=== PATIENT | male | born 1995 | race Caucasian/White ===

== ENCOUNTER 2017-09-17 18:15 | Emergency (ER) | payer OTHER ==
[2017-09-17] MEDS ORDERED: PHENYLEPHRINE 0.5% NOSE 15ML NAS ONE (20:37)
[2017-09-17] MEDS ORDERED: SILVER NITRATE 1 APPL TOP ONE (20:37)
--- NOTE | 2017-09-17 20:50 | ER ---
Nurse's Notes [facility] Name: Inocencio Khan Age: 21 yrs Sex: Male : 1995 Arrival Date: 09/17/2017 Time: 18:20 Bed 15 Private MD: Diagnosis: Epistaxis Presentation: 09/17 18:27 Presenting complaint: Patient states: i have 2 nose bleeds in the past 10 days; its hj stops in 45 minutes;. Transition of care: patient was not received from another setting of care. Onset of symptoms was September 17, 2017. Initial Sepsis Screen: Does the patient meet any 2 criteria? No. Patient's initial sepsis screen is negative. Does the patient have a suspected source of infection? No. Patient's initial sepsis screen is negative. Care prior to arrival: None. 18:27 Method Of Arrival: Ambulatory hj 18:27 Acuity: EDWIGE 4 hj Triage Assessment: 18:29 General: Appears in no apparent distress. uncomfortable, Behavior is calm, cooperative, hj appropriate for age. Pain: Denies pain. Historical: - Allergies: 18:29 Tamiflu; hj - Home Meds: 18:29 None [Active]; hj - PMHx: 18:29 None; hj - PSHx: 18:29 Tonsillectomy; hj - Immunization history:: Adult Immunizations up to date. - Social history:: The patient lives at home, Smoking status: Patient/guardian denies using tobacco. Screenin:10 Abuse screen: Denies threats or abuse. Denies injuries from another. Nutritional bs1 screening: No deficits noted. Tuberculosis screening: No symptoms or risk factors identified. Fall Risk None identified. Assessment: 20:30 General: Appears in no apparent distress. uncomfortable, Behavior is anxious. Pain: bs1 Denies pain. Neuro: Level of Consciousness is awake, alert, obeys commands, Oriented to person, place, time, situation, Appropriate for age Infectious Disease Physician are equal bilaterally. Cardiovascular: Denies chest pain, palpitations, shortness of breath, Heart tones S1 S2 present. Respiratory: Airway is patent Trachea midline Respiratory effort is even, unlabored, Respiratory pattern is regular, symmetrical, Breath sounds are clear bilaterally. GI: No deficits noted. No signs and/or symptoms were reported involving the gastrointestinal system. : No deficits noted. No signs and/or symptoms were reported regarding the genitourinary system. EENT: Nares with bleeding noted on left Reports nose bleeds/sores in left nare. EENT: Reports. Derm: Skin is intact, Skin is pink, warm \T\ dry. Musculoskeletal: Circulation, motion, and sensation intact. Capillary refill < 3 seconds, Range of motion: intact in all extremities. 20:40 Reassessment: Assisted Dr Hand at bedside with packing of neosphenephrine Nasal bs1 spray/silver nitrate to left nare. Patient tolerated well. 21:04 Reassessment: Patient appears in no apparent distress at this time. Patient and/or bs1 family updated on plan of care and expected duration. Pain level reassessed. Patient is alert, oriented x 3, equal unlabored respirations, skin warm/dry/pink. No further bleeding noted to left nare. Vital Signs: 18:29 BP 120 / 69; Pulse 87; Resp 18; Temp 99.1(TE); Pulse Ox 100% on R/A; Weight 71.67 kg; Height 5 ft. 10 in. (177.80 cm); Pain 0/10; 21:09 BP 118 / 70; Pulse 76; Resp 15; Temp 99(O); Pulse Ox 100% on R/A; bs1 18:29 Body Mass Index 22.67 (71.67 kg, 177.80 cm) ED Course: 18:20 Patient arrived in ED. rg4 18:28 Triage completed. 18:29 Arm band placed on left wrist. 20:09 Gaston Hand MD is Attending Physician. 20:31 Lucia Myers, JOSE ELIAS is Primary Nurse. bs1 20:40 Patient has correct armband on for positive identification. Bed in low position. Call bs1 light in reach. Side rails up X 1. Pulse ox on. NIBP on. 20:40 Assist provider with nosebleed control using Afrin sprays, Bleeding from left nare. Set bs1 up for procedure. Performed by Gaston Hand MD Bleeding decreased. Patient tolerated well. 20:40 Patient did not have IV access during this emergency room visit. bs1 20:49 Katja Landrum MD is Referral Physician. gs Administered Medications: 20:40 Drug: Silver Nitrate Applicators 1 application {Note: left nare, By Dr Brooks .} Route: bs1 Topical; Site: affected area; 21:07 Follow up: Response: No adverse reaction bs1 20:40 Drug: Natanael-Synephrine Weems 0.5 % 1 sprays {Note: By Dr Brooks} Route: Intranasal; Site: bs1 left nare; 21:07 Follow up: Response: No adverse reaction bs1 Outcome: 20:49 Discharge ordered by . montse 21:11 Discharged to home ambulatory. bs1 21:11 Condition: stable 21:11 Discharge instructions given to patient, Instructed on discharge instructions, follow up and referral plans. Demonstrated understanding of instructions, follow-up care. 21:12 Patient left the ED. bs1 Signatures: Arpan Andrew, RN RN Emily Smith rg4 Gaston Hand MD MD gs Salazar, Brittany RN RN bs1 Corrections: (The following items were deleted from the chart) 18:31 18:29 Pulse 87bpm; Resp 18bpm; Pulse Ox 100% RA; Temp 99.1F Temporal; 71.67 kg; Height hj 5 ft. 10 in.; BMI: 22.6; Pain 0/10; hj
--- NOTE | 2017-09-17 20:50 | EDPHYS ---
Physician Documentation [facility] Name: Inocencio Khan Age: 21 yrs Sex: Male : 1995 Arrival Date: 09/17/2017 Time: 18:20 Bed 15 Private MD: ED Physician Gaston Hand HPI: 09/17 20:46 This 21 yrs old Male presents to ER via Ambulatory with complaints of Nose gs Bleed. 20:46 The patient presents with a nose bleed, that is apparently anterior, from the left gs nare. Onset: The symptoms/episode began/occurred acutely, today. Modifying factors: The symptoms are alleviated by nothing. the symptoms are aggravated by nothing. Associated signs and symptoms: Pertinent negatives: blurred vision, chest pain, cough. Severity of symptoms: At their worst the symptoms were moderate in the emergency department the symptoms have improved markedly. The patient has experienced similar episodes in the past, a few times. Historical: - Allergies: 18:29 Tamiflu; hj - Home Meds: 18:29 None [Active]; hj - PMHx: 18:29 None; hj - PSHx: 18:29 Tonsillectomy; hj - Immunization history:: Adult Immunizations up to date. - Social history:: The patient lives at home, Smoking status: Patient/guardian denies using tobacco. ROS: 20:46 All other systems are negative. gs Exam: 20:46 Head/Face: Normocephalic, atraumatic. Eyes: Pupils equal round and reactive to light, gs extra-ocular motions intact. Lids and lashes normal. Conjunctiva and sclera are non-icteric and not injected. Cornea within normal limits. Periorbital areas with no swelling, redness, or edema. Neck: Trachea midline, no thyromegaly or masses palpated, and no cervical lymphadenopathy. Supple, full range of motion without nuchal rigidity, or vertebral point tenderness. No Meningismus. Chest/axilla: Normal chest wall appearance and motion. Nontender with no deformity. No lesions are appreciated. Cardiovascular: Regular rate and rhythm with a normal S1 and S2. No gallops, murmurs, or rubs. Normal PMI, no JVD. No pulse deficits. Respiratory: Lungs have equal breath sounds bilaterally, clear to auscultation and percussion. No rales, rhonchi or wheezes noted. No increased work of breathing, no retractions or nasal flaring. Abdomen/GI: Soft, non-tender, with normal bowel sounds. No distension or tympany. No guarding or rebound. No evidence of tenderness throughout. 20:46 Constitutional: The patient appears alert, awake. 20:46 ENT: Nose: Nasal mucosa: Dried blood. bleeding, is seen from the left nare, and is minimal, no septal hematoma is appreciated. Vital Signs: 18:29 BP 120 / 69; Pulse 87; Resp 18; Temp 99.1(TE); Pulse Ox 100% on R/A; Weight 71.67 kg; hj Height 5 ft. 10 in. (177.80 cm); Pain 0/10; 21:09 BP 118 / 70; Pulse 76; Resp 15; Temp 99(O); Pulse Ox 100% on R/A; bs1 18:29 Body Mass Index 22.67 (71.67 kg, 177.80 cm) Procedures: 20:46 Epistaxis treatment: A small amount of bleeding noted from Treated using Oxymetazoline gs sprays, cauterization, silver nitrate, Bleeding stopped. MDM: 20:45 Patient medically screened. 20:46 Differential diagnosis: epistaxis r/t trauma, spontaneous epistaxis. Data reviewed: vital signs, nurses notes. Response to treatment: the patient's symptoms have markedly improved after treatment, the patient's symptoms have resolved after treatment, and as a result, I will discharge patient. Administered Medications: 20:40 Drug: Silver Nitrate Applicators 1 application {Note: left nare, By Dr Brooks .} Route: bs1 Topical; Site: affected area; 21:07 Follow up: Response: No adverse reaction bs1 20:40 Drug: Natanael-Synephrine Garber 0.5 % 1 sprays {Note: By Dr Brooks} Route: Intranasal; Site: bs1 left nare; 21:07 Follow up: Response: No adverse reaction bs1 Disposition: 09/17/17 20:49 Discharged to Home. Impression: Epistaxis. - Condition is Stable. - Discharge Instructions: Nosebleed. - Medication Reconciliation Form, Thank You Letter, Antibiotic Education, Prescription Opioid Use form. - Follow up: Katja Landrum MD; When: 2 - 3 days; Reason: Re-evaluation by your physician. Signatures: Arpan Andrew RN RN Gaston Hand MD MD Lucia Myers RN RN bs1 Corrections: (The following items were deleted from the chart) 21:12 20:49 09/17/2017 20:49 Discharged to Home. Impression: Epistaxis. Condition is Stable. bs1 Forms are Medication Reconciliation Form, Thank You Letter, Antibiotic Education, Prescription Opioid Use. Follow up: Katja Landrum; When: 2 - 3 days; Reason: Re-evaluation by your physician. gs
== END 2017-09-17 21:12 | disposition home or self-care (01) ==
LOC: ER 18:15
PROC: 0W3Q7ZZ Control Bleeding in Respiratory Tract, Via Natural or Artificial Opening (ICD-10-PCS; principal; 2017-09-17)
DX: R04.0 Epistaxis (principal); Z88.8 Allergy status to other drugs, medicaments and biological substances
CPT/HCPCS: 30901; 99283

== ENCOUNTER 2018-02-16 23:30 | Emergency (ER) | payer OTHER ==
[2018-02-17] MEDS ORDERED: MORPHINE 4 MG/ML SYR ONE (00:42)
[2018-02-17] MEDS ORDERED: NA CHLORIDE 0.9% 1,000 ML ONE (00:43)
[2018-02-17] MEDS ORDERED: ONDANSETRON 4 MG/2 ML VIAL ONE (00:43)
[2018-02-17 00:47] LABS: Absolute Lymphocytes (CBC) 2.3 K/uL (0.7-4.9); Absolute Monocytes 0.6 K/uL (0.1-1.3); Absolute Neutrophil 5.2 K/uL (1.8-8.0); Basophils % 0.4 % (0-1.3); Eosinophils % 0.7 % (0-4.4); Hematocrit 38.6 % (39.6-49.0); Lymphocytes % 28.5 % (15.3-44.8); MCH 30.5 pg (27.0-35.0); MCV 87.6 fL (80-100); MPV 8.2 fL (7.6-11.3); Monocytes % 7.3 % (3.3-12.3); RBC Red Blood Cell Count 4.41 M/uL (4.33-5.43)
[2018-02-17 01:14] LABS: ALT/SGPT 18 U/L (12-78); AST/SGOT 15 U/L (15-37); Albumin 4.3 g/dL (3.4-5.0); Alkaline Phosphatase 75 U/L (45-117); BUN Blood Urea Nitrogen 12 mg/dL (7-18); Bicarbonate 27 mmol/L (21-32); Bilirubin Direct 0.1 mg/dL (0-0.2); Bilirubin Total 0.5 mg/dL (0.2-1.0); Glucose Level 87 mg/dL (74-106); Lipase 148 U/L (73-393); Potassium 3.6 mmol/L (3.5-5.1); Protein, Total 7.4 g/dL (6.4-8.2); Sodium Level 140 mmol/L (136-145)
--- NOTE | 2018-02-17 05:57 | EDPHYS ---
Physician Documentation [facility] Name: Inocencio Khan Age: 22 yrs Sex: Male : 1995 Arrival Date: 02/16/2018 Time: 23:35 Bed 15 Private MD: Krunal Amaya B ED Physician Ulisses Garcia HPI: 02/17 00:14 This 22 yrs old Male presents to ER via Ambulatory with complaints of STOMACH pkl PAIN. 00:14 The patient presents with abdominal pain in the left upper quadrant. The symptoms do pkl not radiate. Associated signs and symptoms: Pertinent positives: nausea and vomiting. The patient has not experienced similar symptoms in the past. Historical: - Allergies: 02/16 23:55 Tamiflu; jd3 - Home Meds: 23:55 None [Active]; jd3 - PMHx: 23:55 None; jd3 - PSHx: 23:55 Tonsillectomy; Adenoids; jd3 - Immunization history:: Adult Immunizations up to date. - Social history:: Smoking status: Patient/guardian denies using tobacco. - Ebola Screening: : Patient negative for fever greater than or equal to 101.5 degrees Fahrenheit, and additional compatible Ebola Virus Disease symptoms. ROS: 02/17 00:14 Eyes: Negative for injury, pain, redness, and discharge, ENT: Negative for injury, pkl pain, and discharge, Neck: Negative for injury, pain, and swelling, Cardiovascular: Negative for chest pain, palpitations, and edema, Respiratory: Negative for shortness of breath, cough, wheezing, and pleuritic chest pain. Abdomen/GI: Positive for abdominal pain, nausea and vomiting, of the left upper quadrant. Back: Negative for acute changes. : Negative for urinary symptoms. MS/extremity: Negative for acute changes. Skin: Negative for rash. Neuro: Negative for altered mental status. Exam: 00:14 Head/Face: Normocephalic, atraumatic. Eyes: Pupils equal round and reactive to light, pkl extra-ocular motions intact. Lids and lashes normal. Conjunctiva and sclera are non-icteric and not injected. Cornea within normal limits. Periorbital areas with no swelling, redness, or edema. ENT: Nares patent. No nasal discharge, no septal abnormalities noted. Tympanic membranes are normal and external auditory canals are clear. Oropharynx with no redness, swelling, or masses, exudates, or evidence of obstruction, uvula midline. Mucous membranes moist. Neck: Trachea midline, no thyromegaly or masses palpated, and no cervical lymphadenopathy. Supple, full range of motion without nuchal rigidity, or vertebral point tenderness. No Meningismus. Chest/axilla: Normal chest wall appearance and motion. Nontender with no deformity. No lesions are appreciated. Cardiovascular: Regular rate and rhythm with a normal S1 and S2. No gallops, murmurs, or rubs. Normal PMI, no JVD. No pulse deficits. Respiratory: Lungs have equal breath sounds bilaterally, clear to auscultation and percussion. No rales, rhonchi or wheezes noted. No increased work of breathing, no retractions or nasal flaring. 00:14 Abdomen/GI: Palpation: soft, mild abdominal tenderness, in the left upper quadrant. 00:14 Back: Exam negative for acute changes. 00:14 : Exam negative for acute changes. 00:14 Musculoskeletal/extremity: Exam is negative for acute changes. 00:14 Skin: Exam negative for rash. 00:14 Neuro: Orientation: is normal, Mentation: is normal, Cranial nerves: grossly normal, Motor: is normal. Vital Signs: 02/16 23:56 BP 115 / 76; Pulse 64; Resp 17 S; Temp 98.0(O); Pulse Ox 100% on R/A; Weight 72.57 kg jd3 (R); Height 5 ft. 10 in. (177.80 cm) (R); Pain 7/10; 02/17 00:52 BP 107 / 54; Pulse 48; Resp 18; Pulse Ox 100% on R/A; tl2 01:54 BP 103 / 59; Pulse 48; Resp 18; Pulse Ox 98% on R/A; tl2 03:19 BP 115 / 67; Pulse 56; Resp 18; Pulse Ox 100% on R/A; tl2 04:13 BP 101 / 56; Pulse 57; Resp 18; Pulse Ox 99% ; tl2 04:52 BP 110 / 66; Pulse 52; Resp 17 S; Pulse Ox 98% on R/A; jd3 06:21 BP 121 / 76; Pulse 52; Resp 18; Pulse Ox 99% on R/A; tl2 10/06 23:56 Body Mass Index 22.96 (72.57 kg, 177.80 cm) jd3 MDM: 00:02 Patient medically screened. pkl 05:55 Data reviewed: vital signs, nurses notes, lab test result(s), radiologic studies, CT pkl scan. 02/17 00:13 Order name: Basic Metabolic Panel; Complete Time: 01:18 pkl 02/17 00:13 Order name: CBC with Diff; Complete Time: 00:59 pkl 02/17 00:13 Order name: Creatinine for Radiology; Complete Time: :18 pkl 02/17 00:13 Order name: Hepatic Function; Complete Time: :18 pkl 02/17 00:13 Order name: Lipase; Complete Time: :18 pkl 02/17 01:19 Order name: CT Abd/Pelvis - W/Contrast pkl 02/17 00:13 Order name: IV Saline Lock; Complete Time: 00:16 pkl 02/17 00:13 Order name: Labs collected and sent; Complete Time: 00:16 pkl Administered Medications: 00:43 Drug: NS 0.9% 1000 ml Route: IV; Rate: 1000 ml; Site: right antecubital; tl2 02:00 Follow up: IV Status: Completed infusion; IV Intake: 1000ml tl2 00:43 Drug: morphine 4 mg Route: IVP; Site: right antecubital; tl2 01:30 Follow up: Response: No adverse reaction; Pain is decreased tl2 00:43 Drug: Zofran 4 mg Route: IVP; Site: right antecubital; tl2 01:30 Follow up: Response: No adverse reaction; Nausea is decreased tl2 Disposition: 02/17/18 05:56 Discharged to Home. Impression: Abdominal pain. - Condition is Stable. - Prescriptions for Ultram 50 mg Oral Tablet - take 1 tablet by ORAL route every 8 hours As needed; 20 tablet. - Medication Reconciliation Form, Thank You Letter, Antibiotic Education, Prescription Opioid Use form. - Follow up: Krunal Amaya MD; When: 2 - 3 days; Reason: Re-evaluation by your physician. - Problem is new. - Symptoms have improved. Signatures: Dispatcher [employer] EDMS Ulisses Garcia MD MD pkl Ct Gallegos RN RN tl2 David Irwin RN RN jd3 Corrections: (The following items were deleted from the chart) 06:23 05:56 02/17/2018 05:56 Discharged to Home. Impression: Abdominal pain. Condition is tl2 Stable. Forms are Medication Reconciliation Form, Thank You Letter, Antibiotic Education, Prescription Opioid Use. Follow up: Krunal Amaya; When: 2 - 3 days; Reason: Re-evaluation by your physician. Problem is new. Symptoms have improved. pkl
--- NOTE | 2018-02-17 05:57 | ER ---
Nurse's Notes [facility] Name: Inocencio Khan Age: 22 yrs Sex: Male : 1995 Arrival Date: 02/16/2018 Time: 23:35 Bed 15 Private MD: Krunal Amaya B Diagnosis: Abdominal pain Presentation: 02/16 23:52 Presenting complaint: Patient states: "I started having stomach pain on the left side jd3 of my stomach. I also have not been able to hold down water, and have been nauseated and vomiting since 1830.". Transition of care: patient was not received from another setting of care. Onset of symptoms was February 16, 2018. Risk Assessment: Do you want to hurt yourself or someone else? Patient reports no desire to harm self or others. Initial Sepsis Screen: Does the patient meet any 2 criteria? No. Patient's initial sepsis screen is negative. Does the patient have a suspected source of infection? No. Patient's initial sepsis screen is negative. Care prior to arrival: None. 23:52 Method Of Arrival: Ambulatory jd3 23:52 Acuity: EDWIGE 3 jd3 Triage Assessment: 23:57 General: Appears in no apparent distress. uncomfortable, Behavior is calm, cooperative, jd3 appropriate for age. Pain: Complains of pain in left upper quadrant and left lower quadrant Pain currently is 7 out of 10 on a pain scale. at worst was 10 out of 10 on a pain scale. Quality of pain is described as aching, sharp, Also complains of nausea. EENT: No signs and/or symptoms were reported regarding the EENT system. Neuro: Level of Consciousness is awake, alert, obeys commands, Oriented to person, place, time, situation, Appropriate for age. Cardiovascular: Capillary refill < 3 seconds Patient's skin is warm and dry. Respiratory: Airway is patent Respiratory effort is even, unlabored, Respiratory pattern is regular, symmetrical. GI: Abdomen is round non-distended, Bowel sounds present X 4 quads. Abd is soft Abdomen is tender to palpation in left upper quadrant and left lower quadrant Reports nausea, vomiting, Patient currently denies constipation, diarrhea. : No signs and/or symptoms were reported regarding the genitourinary system. Derm: Skin is intact, Skin is dry, Skin is normal, Skin temperature is warm. Musculoskeletal: Circulation, motion, and sensation intact. Range of motion: intact in all extremities. Historical: - Allergies: 23:55 Tamiflu; jd3 - Home Meds: 23:55 None [Active]; jd3 - PMHx: 23:55 None; jd3 - PSHx: 23:55 Tonsillectomy; Adenoids; jd3 - Immunization history:: Adult Immunizations up to date. - Social history:: Smoking status: Patient/guardian denies using tobacco. - Ebola Screening: : Patient negative for fever greater than or equal to 101.5 degrees Fahrenheit, and additional compatible Ebola Virus Disease symptoms. Screenin:59 Abuse screen: Denies threats or abuse. Nutritional screening: No deficits noted. j Tuberculosis screening: No symptoms or risk factors identified. Fall Risk Ambulatory Aid- None/Bed Rest/Nurse Assist (0 pts). Gait- Normal/Bed Rest/Wheelchair (0 pts) Mental Status- Oriented to own ability (0 pts). Total Mercedes Fall Scale indicates No Risk (0-24 pts). Assessment: 23:59 General: see triage assessment. [facility] 02/17 00:52 Reassessment: Patient appears in no apparent distress at this time. Patient and/or tl2 family updated on plan of care and expected duration. Pain level reassessed. Patient is alert, oriented x 3, equal unlabored respirations, skin warm/dry/pink. 01:54 Reassessment: Patient appears in no apparent distress at this time. Patient and/or tl2 family updated on plan of care and expected duration. Pain level reassessed. Patient is alert, oriented x 3, equal unlabored respirations, skin warm/dry/pink. Patient states feeling better. 03:19 Reassessment: Patient appears in no apparent distress at this time. Patient and/or tl2 family updated on plan of care and expected duration. Pain level reassessed. Patient is alert, oriented x 3, equal unlabored respirations, skin warm/dry/pink. 04:51 Reassessment: Patient appears in no apparent distress at this time. No changes from [facility] previously documented assessment. Patient and/or family updated on plan of care and expected duration. Pain level reassessed. Patient is alert, oriented x 3, equal unlabored respirations, skin warm/dry/pink. 06:21 Reassessment: Patient appears in no apparent distress at this time. Patient and/or tl2 family updated on plan of care and expected duration. Pain level reassessed. Patient is alert, oriented x 3, equal unlabored respirations, skin warm/dry/pink. Pt verbalized understanding of discharge instructions, need for follow up and prescription usage Patient states feeling better. Vital Signs: 02/16 23:56 BP 115 / 76; Pulse 64; Resp 17 S; Temp 98.0(O); Pulse Ox 100% on R/A; Weight 72.57 kg jd3 (R); Height 5 ft. 10 in. (177.80 cm) (R); Pain 11/20; 02/17 00:52 BP 107 / 54; Pulse 48; Resp 18; Pulse Ox 100% on R/A; tl2 01:54 BP 103 / 59; Pulse 48; Resp 18; Pulse Ox 98% on R/A; tl2 03:19 BP 115 / 67; Pulse 56; Resp 18; Pulse Ox 100% on R/A; tl2 04:13 BP 101 / 56; Pulse 57; Resp 18; Pulse Ox 99% ; tl2 04:52 BP 110 / 66; Pulse 52; Resp 17 S; Pulse Ox 98% on R/A; jd3 06:21 BP 121 / 76; Pulse 52; Resp 18; Pulse Ox 99% on R/A; tl2 02/16 23:56 Body Mass Index 22.96 (72.57 kg, 177.80 cm) jd3 ED Course: 02/16 23:35 Patient arrived in ED. al2 23:35 Krunal Amaya MD is Private Physician. al2 23:52 David Irwin, JOSE ELIAS is Primary Nurse. jd3 23:54 Triage completed. jd3 23:55 Arm band placed on. jd3 23:59 Patient has correct armband on for positive identification. Bed in low position. Call j light in reach. Side rails up X 1. Adult w/ patient. 02/17 00:01 Ulisses Garcia MD is Attending Physician. pkl 00:15 Ct Gallegos, JOSE ELIAS is Primary Nurse. tl2 00:30 Inserted saline lock: 18 gauge in right antecubital area, using aseptic technique. tl2 Blood collected. 02:[address] via stretcher. kw1 03:02 CT Abd/Pelvis - W/Contrast In Process Unspecified. EDMS 03:08 CT completed. Patient tolerated procedure well. Patient moved back from CT. kw1 05:56 Krunal Amaya MD is Referral Physician. pkl 06:21 No provider procedures requiring assistance completed. IV discontinued, intact, tl2 bleeding controlled, No redness/swelling at site. Pressure dressing applied. Administered Medications: 00:43 Drug: NS 0.9% 1000 ml Route: IV; Rate: 1000 ml; Site: right antecubital; tl2 02:00 Follow up: IV Status: Completed infusion; IV Intake: 1000ml tl2 00:43 Drug: morphine 4 mg Route: IVP; Site: right antecubital; tl2 01:30 Follow up: Response: No adverse reaction; Pain is decreased tl2 00:43 Drug: Zofran 4 mg Route: IVP; Site: right antecubital; tl2 01:30 Follow up: Response: No adverse reaction; Nausea is decreased tl2 Intake: 02:00 IV: 1000ml; Total: 1000ml. tl2 Outcome: 05:56 Discharge ordered by . pkl 06:21 Discharged to home ambulatory, with family. tl2 06:21 Condition: stable 06:21 Discharge instructions given to patient, family, Instructed on discharge instructions, follow up and referral plans. medication usage, Demonstrated understanding of instructions, follow-up care, medications, Prescriptions given X 1. 06:23 Patient left the ED. tl2 Signatures: Dispatcher [employer] EDMS Ulisses Garcia MD MD pkl Knox, Taylor, RN RN tl2 David Irwin RN RN jd3 Wilhelm, Kimberly kw1 Dawna Purvis
--- NOTE | 2018-02-17 11:40 | RAD REPORT ---
EXAM DESCRIPTION: CTAbdomen Pelvis W Contrast - 02/17/2018 6:47 am CLINICAL HISTORY: Abdominal pain. ABD PAIN COMPARISON: No comparisons TECHNIQUE: Biphasic CT imaging of the abdomen and pelvis was performed with 100 ml non-ionic IV cont rast. All CT scans are performed using dose optimization technique as appropriate and may include automated exposure control or mA/KV adjustment according to patient size. FINDINGS: The lung bases are clear. The liver, spleen, pancreas, adrenal glands and kidneys are within normal limits. No bowel obstruction, free air, free fluid or abscess. The appendix is normal. Significant constipat ion. No evidence of significant lymphadenopathy. No suspicious bony findings. IMPRESSION: Significant constipation.
== END 2018-02-17 06:23 | disposition home or self-care (01) ==
LOC: ER 23:30
DX: R10.12 Left upper quadrant pain (principal); R11.2 Nausea with vomiting, unspecified; Z88.8 Allergy status to other drugs, medicaments and biological substances
CPT/HCPCS: 36415; 74177; 80048; 80076; 83690; 85025; 96361; 96374; 96375; 99284; J2405; J7030; Q9967